=== PATIENT | female | born 1970 | race Two or more races ===

== ENCOUNTER → 2019-12-26 10:40 | Outpatient (CLI) | payer BC, SELFPAY ==
[2019-12-26 10:13] VITALS: BMI 26.1
[2019-12-26 11:44] LABS: Microalbumin,Random Urine 29.7 mg/L (NO RANGE EST.); Microalbumin:Creatinine Ratio 35.6 mg/g CRE (<30 mg/g CRE)
[2019-12-26 11:49] LABS: BUN 23 mg/dL (7-18); EST Glomerular Filtration Rate 51 mL/min (>60); Glucose 86 mg/dL (74-106)
[2019-12-26 11:50] LABS: AST(SGOT) 17 U/L (15-37); Alanine Aminotransfer ALT/SGPT 27 U/L (13-56); Albumin, Serum 3.5 g/dL (3.2-5.0); Alkaline Phosphatase 85 U/L (45-117); Anion Gap 2 (5-15); BUN/Creat Ratio 19.2 RATIO (10-20); Calcium,Total 11.7 mg/dL (8.5-10.1); Chloride 103 mmol/L (98-107); Cholesterol 151 mg/dL (200); Est Glom Filt Rate - Afr Amer 62 mL/min (>60); Globulin 3.6 g/dL (2.2-4.2); High Density Lipoprotein 60 mg/dL; Potassium 4.6 mmol/L (3.5-5.1); Protein, Total 7.1 g/dL (6.4-8.2); Sodium Level 139 mmol/L (136-145); Triglycerides 80 mg/dL; Very Low Density Lipoprotein 16 mg/dL (5-40)
== END ==
PROVIDERS: Referring Provider Internal Medicine Endocrinology, Diabetes & Metabolism; Visit Provider Internal Medicine Endocrinology, Diabetes & Metabolism
DX: E11.65 Type 2 diabetes mellitus with hyperglycemia (principal)
CPT/HCPCS: 36415; 80053; 80061; 82043; 82570

== ENCOUNTER → 2020-01-17 09:14 | Outpatient (CLI) | payer BC, SELFPAY ==
[2019-12-26 10:13] VITALS: BMI 26.1
--- NOTE | 2020-01-17 09:14 | NM_ITS ---
CLINICAL: 49-year-old female with reported history of clinical hyperparathyroidism. 99m Tc SESTAMIBI DUAL PHASE PARATHYROID SCINTIGRAPHY COMPARISON: None available FINDINGS: Following the intravenous administration of 26.1 mCi of 99m Tc sestamibi, image acquisitions of the anterior neck at approximately 30 minutes and 3.0 hours post radiopharmaceutical provision reveal: 1. Immediate static blood pool acquisitions demonstrate distribution of the radiopharmaceutical in the right-left lobes of the thyroid gland. There is an increase in tracer concentration noted in the inferior pole of the right lobe thyroid colloid and/or adjacent to the inferior pole of the right lobe. 2. Delayed images depict persistent tracer concentration noted contiguous to and/or adjacent to the region of the inferior pole of the right thyroid bed. NM/Parathyroid Scan IMPRESSION: 1. ABNORMAL-POSITIVE 99m Tc SESTAMIBI PARATHYROID IMAGING DUAL PHASE EXAMINATION. 2. There is scintigraphic evidence of a parathyroid adenoma involving the region of the inferior pole of the right lobe thyroid colloid as described above. Electronically Signed: Stanley Mcneal DO at 8:16 EST Tel , Service support ,
== END ==
PROVIDERS: Referring Provider Internal Medicine Endocrinology, Diabetes & Metabolism; Visit Provider Internal Medicine Endocrinology, Diabetes & Metabolism
DX: E21.0 Primary hyperparathyroidism (principal)
CPT/HCPCS: 78070; A9500